=== PATIENT | female | born 1985 ===

== ENCOUNTER 2016-10-06 05:30 | Inpatient (IN) | payer MEDICAID, SELFPAY ==
--- NOTE | 2016-10-06 05:48 | OBHP ---
Datetime: 06/03/2016 01:33 IP Adm Impression: , intrauterine IP Admit Plan: Observation/Evaluation; Discharge home Admit Comment, IP Provider: The patient is 31 y/o @ 22.4 weeks presents with vaginal bleedin g. The patient reports spotting and small drops of blood after urinating and wiping. The bleed has been going on for 3 days, is light colored, and mucus-like with no clots. The patient reports taking PNVs and positive movements. The patient denies LOF, CTXs, nausea, vomiting, diarrhea, headac hes, chest pain, dyspnea, dysuria, and fevers. The patient had her last U/S on 05/22 which she was t old was WNL. The patient goes to [facility] and sees Amy Amaya. O: CV: RRR Resp: CTA bilaterally Pelvic: closed cervix on bimanual exam, large amount of thick yellowish discharge on speculum exam A: 31 y/o @ 22.4 weeks presents w/ vaginal bleed P: observe and evaluate cont FHT urine culture/sensitivity ordered UA neg Leuks and nitrates with mod Bacteria DC home w/ script for macrobid for 7 days BID Cruz Rosado MD PGY-1 Real Estate Salesperson OBH ADDENDUM: pt seen _ examined by me with . agree with above assessment andplan with following solo tions s: denies coitus x1mo; c/o pinpoint intermittent abd pain which resolves within seconds. denies cr amps or ctxs. o: profuse yellowish d/c i: uti vag d/c p: pt advised to f/u in ob clinic for vag and cerv cx of vag d/c Pelvic Type - PN: Adequate Extremities - PN: Normal Abdomen - PN: Normal Back - PN: Not Done Breast - PN: Not Done Lungs - PN: Normal Heart - PN: Normal Thyroid - PN: Not Done Neurologic - PN: Normal HEENT - PN: Normal General - PN: Normal FHR - Baseline A Provider: 140 Membranes, Provider: Intact EGA AdmitDate IP: 22.4 Vital Signs Provider: Reviewed; Within Normal Limits IP Chief Complaint: Vaginal bleeding NICHD Variability Prov Fetus A: Moderate 6-25bpm NICHD Accel Fetus A IP Provider: 15X15 FHR Category Provider Fetus A: Category I NICHD Decel Fetus A IP Provider: None Dilatation, Provider: 0 Effacement, Provider: 0 Station, Provider: floating Genitourinary Exam: Normal DTRs - PN: Not Done
[2016-10-06 07:29] VITALS: BMI 32.5
[2016-10-06] MEDS ORDERED: Lactated Ringer's 1,000 ML IV SCH ×2 (09:30)
--- NOTE | 2016-10-06 09:39 | OBHP ---
Datetime: 10/06/2016 08:05 IP Adm Impression: Term, intrauterine IP Admit Plan: Observation/Evaluation Admit Comment, IP Provider: 31 y/o edc 6/2 by lmp _ 14wk us @ 40.3 weeks IUP presents with uter in contractions. The patient reports the contractions started yesterday and were 3-4 hours apart but around 22:00 the contractions became every 20 minutes and have been so since then. The patient repo rts +FM and denies VB, LOF, n/v/d, headaches, chest pain, SOB, and fevers. Clinic: [facility] PMH: none allergies NKDA PShx: none OBHx: x2 spontaneous miscarriage, x1 FT 2002 SOC: denies smoking, alcohol, and drugs GBS: POSITIVE ABO-Rh: A+ antibody: neg RPR: neg HIV: neg HBsAg: neg Rubella: NON-IMMUNE GC/C: neg PPD: neg Tdap: 07/21/2016 O: CV: RRR Resp: CTA bl pelvic: fingertip, intact membranes A: 31 y/o @ 40.3 wks IUP presents with uterine contractions P: observe and re-evaluate allow patient to ambulate and will be re-checked in 1 hour Cruz Rosado M.D. Installment Account Checker PGY-1 obh addendum: pt seen _ examined by me. agree with above assess and plan. Pelvic Type - PN: Adequate Extremities - PN: Normal Abdomen - PN: Normal Back - PN: Normal Breast - PN: Normal Lungs - PN: Normal Heart - PN: Normal Thyroid - PN: Normal Neurologic - PN: Normal HEENT - PN: Normal General - PN: Normal FHR - Baseline A Provider: 136 Membranes, Provider: Intact IP Hx Assessment: The History has been Reviewed and is Current EGA AdmitDate IP: 40.3 Vital Signs Provider: Reviewed; Within Normal Limits IP Chief Complaint: Uterine contractions NICHD Variability Prov Fetus A: Moderate 6-25bpm NICHD Accel Fetus A IP Provider: 15X15 FHR Category Provider Fetus A: Category I NICHD Decel Fetus A IP Provider: None Dilatation, Provider: fingertip Genitourinary Exam: Normal DTRs - PN: Normal
[2016-10-06] MEDS ORDERED: Fentanyl/Bupivacaine HCl 250 ML EPI ONE (09:56)
[2016-10-06] MEDS ORDERED: Bupivacaine HCl 0.25% PF (10 ml) Inj ONE (09:56)
[2016-10-06 10:28] VITALS: BP 117/71; PULSE 68; RESP 20; TEMP 98.3; O2SAT 97
--- NOTE | 2016-10-06 10:49 | OBADHP ---
Datetime: 10/06/2016 09:49 Admit Comment, IP Provider: 31 y/o edc / by lmp _ 14wk us @ 40.3 weeks IUP presents with uter in contractions. The patient reports the contractions started yesterday and were 3-4 hours apart but around 22:00 the contractions became every 20 minutes and have been so since then. The patient repo rts +FM and denies VB, LOF, n/v/d, headaches, chest pain, SOB, and fevers. Clinic: [facility] PMH: none allergies NKDA PShx: none OBHx: x2 spontaneous miscarriage, x1 FT 2002 SOC: denies smoking, alcohol, and drugs GBS: POSITIVE ABO-Rh: A+ antibody: neg RPR: neg HIV: neg HBsAg: neg Rubella: NON-IMMUNE GC/C: neg PPD: neg Tdap: 07/21/2016 O: CV: RRR Resp: CTA bl pelvic: 3cm, 70%, -1, ruptured membranes, light meconium stained A: 31 y/o @ 40.3 wks IUP presents with uterine contractions P: admit to unit initiate labor protocol continuous monitoring LR @ 125 Penicillin G 5Mu and then 2.5 Mu Q4h type and screen ordered anticipate vaginal delivery Cruz Rosado M.D. Handle Rounder Operator PGY-1 Pelvic Type - PN: Adequate Extremities - PN: Normal Abdomen - PN: Normal Back - PN: Normal Breast - PN: Normal Lungs - PN: Normal Heart - PN: Normal Thyroid - PN: Normal Neurologic - PN: Normal HEENT - PN: Normal General - PN: Normal Amniotic Fluid Color, Provider: Meconium, Light Membranes, Provider: Ruptured IP Hx Assessment: The History has been Reviewed and is Current Vital Signs Provider: Reviewed; Within Normal Limits IP Chief Complaint: Uterine contractions Dilatation, Provider: 3 Effacement, Provider: 70 Station, Provider: -1 Genitourinary Exam: Normal DTRs - PN: Normal EGA AdmitDate IP: 40.3 IP Adm Impression: Term, intrauterine IP Admit Plan: Admit to unit; Initiate labor protocol Datetime: 10/06/2016 08:05 FHR - Baseline A Provider: 136 NICHD Variability Prov Fetus A: Moderate 6-25bpm NICHD Accel Fetus A IP Provider: 15X15 FHR Category Provider Fetus A: Category I NICHD Decel Fetus A IP Provider: None
[2016-10-06] MEDS ORDERED: Oxycodone/Acetaminophen 5/325 mg Tab PO PRN ×4 (11:22→15:16)
[2016-10-06] MEDS ORDERED: Benzocaine/Menthol SPRAY TOP PRN ×2 (11:22→15:16)
--- NOTE | 2016-10-06 12:23 | OBDS ---
MATERNAL INFORMATION Estimated Blood Loss (ml): 300 Provider Comments: Delivery Note FHR Bradycardia to 80-90 for _10min duration with no response to resuscitation. During this time pt progressed from 9 to 10cm. She was taken back to or for double set up. In OR, FHR rechecked with us followed by monitor and was found to be in 120s. Predelivery Diagnosis: 40.3wks; labor; Resolved FHR bradycardia Postdelivery Diagnosis: Same; body cord Procedure: ; repair of 1st degree laceration with 3-0 vicryl. plac delivered spontaneously and intact OB: orossetos Resident: JAVAD Rosado pgy1 anesth: epidural- dr. nolasco ebl 300cc Findings: viable male with compound presentatio of rue; wt [id number]; apg 9_9 to br with pt. no complicaiton. path: none LABOR SUMMARY EDC: 10/03/2016 00:00 No. Babies in Womb: 1 LABOR INFORMATION Onset of Labor: 10/06/2016 03:00 Group B Beta Strep: Positive (Annotations: 09/03/2016) MEMBRANES Membranes Rupture Method: Spontaneous Rupture of Membranes: 10/06/2016 09:30 Amniotic Fluid Color: Light Meconium Amniotic Fluid Amount: Small Amniotic Fluid Odor: Normal VAGINAL DELIVERY Episiotomy: None Laceration Extension: First Degree Laceration Type: Perineal Sponge Count Correct: Yes Sharps Count Correct: N/A PRESENTATION/POSITION BABY A Presentation: Compound Cephalic Presentation: Vertex Vertex Position: Left Occipital Anterior PLACENTA INFORMATION BABY A Placenta Method of Delivery: Spontaneous Placenta Status: Delivered CORD INFORMATION BABY A Nuchal Cord Other: body cord
[2016-10-06] MEDS ORDERED: Measles, Mumps, and Rubella 0.5 ML VIAL SC ONE (13:00)
[2016-10-06 15:00] LABS: BASO % 0.2 % (0.0-2.0); EOS % 0.1 % (0.0-4.0); LYMPH # 1.9 K/uL (1.0-4.3); LYMPH % 11.4 % (20.0-40.0); MEAN CELL VOLUME 83.4 fl (81.0-99.0); MEAN CORPUSCULAR HEMOGLOBIN 28.5 pg (27.0-31.0); MEAN CORPUSCULAR HGB CONC 34.2 g/dL (33.0-37.0); MEAN PLATELET VOLUME 8.8 fl (7.2-11.7); MONO # 0.7 K/uL (0.0-0.8); MONO % 4.4 % (0.0-10.0); NEUT # 13.6 K/uL (1.8-7.0); NEUT % 83.9 % (50.0-75.0); RED CELL DISTRIBUTION WIDTH 14.4 % (11.5-14.5); WHITE BLOOD COUNT 16.2 K/uL (4.8-10.8)
[2016-10-07 10:51] LABS: HEMATOCRIT 30.5 % (34.0-47.0); MEAN CELL VOLUME 85.2 fl (81.0-99.0); MEAN CORPUSCULAR HEMOGLOBIN 28.6 pg (27.0-31.0); MEAN CORPUSCULAR HGB CONC 33.5 g/dL (33.0-37.0); RED CELL DISTRIBUTION WIDTH 15.1 % (11.5-14.5); WHITE BLOOD COUNT 9.4 K/uL (4.8-10.8)
[2016-10-07] MEDS ORDERED: Measles, Mumps, and Rubella 0.5 ML VIAL SC ONE (12:00)
--- NOTE | 2016-10-07 14:48 | OBPPN ---
Datetime: 10/07/2016 12:07 PP Pain Prov: Within normal limits PP Nausea Prov: Denies PP Flatus Prov: No PP BM Prov: No PP Breasts Prov: Not Done PP Heart Prov: Normal PP Lungs Prov: Normal PP Abdomen/Uterus Prov: Normal PP Lochia Prov: Normal PP Vulva/Perineum Prov: Not Done PP CVA Tenderness Prov: Not Done PP Extremities Prov: Not Done PP C/S Incision Prov: Not Applicable PP Progress Prov: Normal PP Impression Prov: Normal progression PP Plan Prov: Continue present management PP Progress Note Prov: 31 y/o now seen and examined at bedside. Patient had uneventful overnig ht. Patient reports mild pelvic pain controlled w/ pain meds. OOB/Ambulating w/o dizziness. Breast /bottle feeding w/o difficulty. Tolerating PO diet well. Lochia is less than menses in volume. Voi ding freely w/ no blood noted. Reports bowel movement. Denies fevers, chills, n/v/d, CP/SOB, lighth eadedness and calf pain. PE: GEN: A_O, resting comfortably in bed, NAD Lung: CTA B/L, no wheezing, rhonchi, or rales CVS: S1, S2 wnl, RRR Abd: +BS, firm fundus below umbilicus. EXT: no edema, negative Del's, calves non-tender Assessment: 31 y/o now s/p on 10/06/2016 @ 11:07 tolerating pain w/ medication, tolerati ng oral intake, adequate urine output, doing well on PPD1. Plan: Percocet 5/325 mg 1-2 tabs PO Q6h prn for mod/severe pain. Ibuprofen 600 mg 1 tab Q6h PO pr n for mild pain. Encourage breast feeding and ambulation. Cruz Rosado M.D. Renewable Energy Project Manager PGY-1 OB Hospitalist on-call. I saw and examined this patient on rounds. Agree with note. RENATA KYLE PP Procedures: None Vital Signs Provider PP: Within Normal Limits
[2016-10-08] MEDS ORDERED: Measles, Mumps, and Rubella 0.5 ML VIAL SC ONE (05:00)
--- NOTE | 2016-10-08 10:59 | OBDCSUM ---
Datetime: 10/08/2016 06:10 Discharged to, Provider: Home Follow up at, Provider: [facility] Disch Instr Activity: Normal activity; May be up to bathroom; May Shower Disch Instr Diet: Regular Discharge Instructions, Provider: Routine instructions given Discharge Diagnosis, Provider: Term Delivered Discharge Time: 10/08/2016 07:00 Follow up in weeks, Provider: 6 weeks Disch Referrals: None Contraception discussed, Prov: Yes Disch Activity Restrictions: No lifting; No driving; No sexual activity; Nothing in vagina - Interco urse, tampons, douche Discharge Comment, Provider: The patient was seen with the resident and I agree with the notes Contraception after Delivery: IUD
--- NOTE | 2016-10-08 10:59 | OBPPN ---
Datetime: 10/08/2016 06:07 PP Pain Prov: Within normal limits PP Nausea Prov: Denies PP Flatus Prov: Yes PP Breasts Prov: Normal PP Heart Prov: Normal PP Lungs Prov: Normal PP Abdomen/Uterus Prov: Normal PP Lochia Prov: Normal PP Vulva/Perineum Prov: Normal PP CVA Tenderness Prov: Normal PP Extremities Prov: Normal PP C/S Incision Prov: Not Applicable PP Progress Prov: Normal PP Comments Phys Exam Prov: Abd: +BS, firm fundus below umbilicus. EXT: no edema, negative Del's, calves non-tender PP Impression Prov: Normal progression PP Plan Prov: Discharge PP Progress Note Prov: pt seen and examined at bedside. Patient had uneventful overnight. Patient reports mild pelvic pain controlled w/ pain meds. OOB/Ambulating w/o dizziness. Breast/bottle feedi ng w/o difficulty. Tolerating PO diet well. Lochia is less than menses in volume. Voiding freely w / no blood noted. Reports no bowel movement. Denies fevers, chills, n/v/d, CP/SOB, lightheadedness and calf pain. A/P: 31 y/o s/p on 10/06/2016 doing well on PPD#2. -continue current management -Ibuprofen 600 mg 1 tab Q6h PO prn for mild pain. -Encourage breast feeding and ambulation. -Anticipate DC today Ernesto Gilliland MD PGY1 @ 6:09am The patient was seen with the resident and I agree with the notes Vital Signs Provider PP: Reviewed; Within Normal Limits
== END 2016-10-08 13:55 | disposition home or self-care (01) | DRG 373 ==
LOC: H.EROB2 05:30 → H.L&D 09:29 → H.OB/GYN 15:10
PROVIDERS: ADMIT Obstetrics & Gynecology; ATTEND Obstetrics & Gynecology
PROC: 10E0XZZ Delivery of Products of Conception, External Approach (ICD-10-PCS; principal; 2016-10-06)
PROC: 0HQ9XZZ Repair Perineum Skin, External Approach (ICD-10-PCS; 2016-10-06)
PROC: 4A1HXCZ Monitoring of Products of Conception, Cardiac Rate, External Approach (ICD-10-PCS; 2016-10-06)
DX: O48.0 Post-term pregnancy (principal); O99.824 Streptococcus B carrier state complicating childbirth; Z37.0 Single live birth; O70.0 First degree perineal laceration during delivery; Z3A.40 40 weeks gestation of pregnancy; O62.8 Other abnormalities of forces of labor